=== PATIENT | male | born 1995 | race Caucasian/White ===

== ENCOUNTER 2018-06-02 15:30 | Emergency (ER) | payer OTHER ==
--- NOTE | 2018-06-02 17:20 | ER Document Report ---
HPI - HPI Patient complains to provider of: Skin rash Time Seen by Provider: 06/02/18 17:06 Onset: This morning Onset/Duration: Gradual Pain Level: 0 Context: Patient states that last night for New Year[employer] [place] he was drinking heavily and had a lot of forceful vomiting and gagging. Patient states that his nausea is resolved at this time and he is feeling much better. Patient noticed a rash to his face. Patient denies any new foods medications or detergents. Patient denies any difficulty breathing. Patient denies any chest or abdominal pain. Associated Symptoms: Other - Skin rash. denies: Chest pain, Nonproductive cough, Productive cough, Fever Exacerbated by: Denies Relieved by: Denies Similar symptoms previously: No Recently seen / treated by doctor: No - ROS ROS below otherwise negative: Yes Systems Reviewed and Negative: Yes All other systems reviewed and negative - CONSTITUTIONAL Constitutional: DENIES: Fever - NEURO Neurology: DENIES: Headache - CARDIOVASCULAR Cardiovascular: DENIES: Chest pain - RESPIRATORY Respiratory: DENIES: Trouble Breathing, Coughing - GASTROINTESTINAL Gastrointestinal: REPORTS: Patient vomiting - Yesterday, now resolved - DERM Skin Problems: Rash Past Medical History - General Information source: Patient - Social History Smoking Status: Never Smoker Frequency of alcohol use: Occasional Drug Abuse: None Family History: Reviewed & Not Pertinent - Medical History Medical History: Negative Surgical Hx: Negative Vertical Provider Document - CONSTITUTIONAL Agree With Documented VS: Yes Exam Limitations: No Limitations General Appearance: WD/WN, No Apparent Distress - INFECTION CONTROL TRAVEL OUTSIDE OF THE [place] IN LAST 30 DAYS: No - HEENT HEENT: Atraumatic, Normal ENT Exam, Normocephalic Notes: Petechial rash to face - NECK Neck: Normal Inspection, Supple. negative: Lymphadenopathy-Left, Lymphadenopathy-Right - RESPIRATORY Respiratory: Breath Sounds Normal, No Respiratory Distress, Chest Non-Tender - CARDIOVASCULAR Cardiovascular: Regular Rate, Regular Rhythm, No Murmur. negative: Tachycardia - GI/ABDOMEN Gastrointestinal: Abdomen Soft, Abdomen Non-Tender, No Organomegaly - BACK Back: Normal Inspection - MUSCULOSKELETAL/EXTREMETIES Musculoskeletal/Extremeties: MAEW - NEURO Level of Consciousness: Awake, Alert, Appropriate Motor/Sensory: No Motor Deficit - DERM Integumentary: Warm, Dry, Rash - Petechial rash to face Course - Re-evaluation Re-evalutation: 06/02/18 18:11 Patient nontoxic in appearance with stable vital signs. Normal coagulation studies. Suspect that patient has petechial rash due to repeated retching last night as a result of alcohol intake. Patient clinically sober at this time. Patient denies any chest pain or abdominal pain no difficulty breathing. Patient denies any pain complaints at all. - Vital Signs Vital signs: Temp Pulse Resp BP Pulse Ox 98.7 F 74 17 127/76 H 97 06/02/18 15:41 06/02/18 15:41 06/02/18 15:41 06/02/18 15:41 06/02/18 15:41 - Laboratory Result Diagrams: 06/02/18 17:10 06/02/18 17:10 Laboratory results interpreted by me: 06/02/18 18:11 Labs- Entire Visit 06/02/18 06/02/18 06/02/18 17:10 17:10 17:10 WBC 9.2 RBC 5.33 Hgb 16.6 Hct 46.9 MCV 88 MCH 31.1 MCHC 35.3 RDW 12.9 Plt Count 270 Seg Neutrophils % 65.8 Lymphocytes % 25.4 Monocytes % 8.1 Eosinophils % 0.3 Basophils % 0.4 Absolute Neutrophils 6.1 Absolute Lymphocytes 2.3 Absolute Monocytes 0.7 Absolute Eosinophils 0.0 Absolute Basophils 0.0 PT 13.3 INR 0.96 APTT 27.5 Sodium 139.6 Potassium 4.8 Chloride 102 Carbon Dioxide 27 Anion Gap 11 BUN 14 Creatinine 0.89 Est GFR ( Amer) > 60 Est GFR (Non-Af Amer) > 60 Glucose 92 Calcium 10.0 Total Bilirubin 0.8 Direct Bilirubin 0.2 Neonat Total Bilirubin Not Reportable Neonat Direct Bilirubin Not Reportable Neonat Indirect Bili Not Reportable AST 26 ALT 27 Alkaline Phosphatase 77 Total Protein 7.9 Albumin 5.0 Discharge - Discharge Clinical Impression: Petechial rash Condition: Stable Disposition: HOME, SELF-CARE Additional Instructions: Return immediately for any new or worsening symptoms Followup with your primary care provider, call tomorrow to make a followup appointment Return immediately for any worsening of rash, bruising, or any new or concerning symptoms. Referrals: [facility] [Provider Group] - Follow up as needed
[2018-06-02 17:28] LABS: ABSOLUTE LYMPHOCYTES (AUTO) 2.3 10^3/uL (0.5-4.7); ABSOLUTE MONOCYTES (AUTO) 0.7 10^3/uL (0.1-1.4); ABSOLUTE NEUT (AUTO) 6.1 10^3/uL (1.7-8.2); BASOPHILS % (AUTO) 0.4 % (0-2); EOSINOPHILS % (AUTO) 0.3 % (0-6); HEMATOCRIT 46.9 % (37.9-51.0); HEMOGLOBIN 16.6 g/dL (13.5-17.0); LYMPHOCYTES % (AUTO) 25.4 % (13-45); MEAN CORPUSCULAR HEMOGLOBIN 31.1 pg (27.0-33.4); MEAN CORPUSCULAR HGB CONC 35.3 g/dL (32.0-36.0); MEAN CORPUSCULAR VOLUME 88 fl (80-97); MONOCYTES % (AUTO) 8.1 % (3-13); PLATELET COUNT 270 10^3/uL (150-450); RED BLOOD COUNT 5.33 10^6/uL (4.35-5.55); RED CELL DISTRIBUTION WIDTH 12.9 % (11.5-14.0); SEGMENTED NEUTROPHILS % (AUTO) 65.8 % (42-78); TOTAL CELLS COUNTED % (AUTO) 100 %; WHITE BLOOD COUNT 9.2 10^3/uL (4.0-10.5)
[2018-06-02 17:34] LABS: INTERNATIONAL RATION (INR) 0.96; PARTIAL THROMBOPLASTIN TIME 27.5 SEC (23.5-35.8); PROTHROMBIN TIME 13.3 SEC (11.4-15.4)
[2018-06-02 17:48] LABS: ALANINE AMINOTRANSFERASE 27 U/L (21-72); ALKALINE PHOSPHATASE 77 U/L (38-126); ANION GAP 11 (5-19); ASPARTATE AMINO TRANSFERASE 26 U/L (17-59); BILIRUBIN,DIRECT 0.2 mg/dL (0.0-0.4); BILIRUBIN,TOTAL 0.8 mg/dL (0.2-1.3); BLOOD UREA NITROGEN 14 mg/dL (7-20); CARBON DIOXIDE 27 mmol/L (22-30); CHLORIDE 102 mmol/L (98-107); GLUCOSE 92 mg/dL (75-110); POTASSIUM 4.8 mmol/L (3.6-5.0); SODIUM 139.6 mmol/L (137-145); TOTAL PROTEIN 7.9 g/dL (6.3-8.2)
[2018-06-02 18:47] VITALS: BP 123/70
== END 2018-06-02 18:25 | disposition home or self-care (01) ==
LOC: ER 15:30
DX: R23.3 Spontaneous ecchymoses (principal)
CPT/HCPCS: 36415; 80053; 85025; 85610; 85730; 99283